=== PATIENT | female | born 1970 | race Hispanic/Latino ===

== ENCOUNTER 2025-07-22 14:45 | Emergency (ER) | payer MEDICAID ==
[2025-07-22] MEDS ORDERED: HYDROcodone/Acetaminophen 5/325 mg Tablet ONE (15:31)
[2025-07-22] MEDS ORDERED: Amoxicillin/Potassium Clav 875 MG TAB ONE (15:31)
== END 2025-07-22 15:36 | disposition home or self-care (01) ==
LOC: NAV ERS 14:45
DX: K04.4 Acute apical periodontitis of pulpal origin (principal); K02.9 Dental caries, unspecified; R73.03 Prediabetes; F17.290 Nicotine dependence, other tobacco product, uncomplicated; Z79.84 Long term (current) use of oral hypoglycemic drugs
CPT/HCPCS: 99282